=== PATIENT | female | born 1980 | race African-American/Black ===

== ENCOUNTER → 2016-10-23 | Outpatient (CLI) | payer OTHER ==
[~2016-10-23] MED LIST: HYDR-5688 PO; ULT50X PO; XRL15 PO
== END | disposition home or self-care (01) ==
LOC: C.PAPS 14:40
PROVIDERS: ATTEND Obstetrics & Gynecology
DX: Z01.419 Encounter for gynecological examination (general) (routine) without abnormal findings (principal)

== ENCOUNTER 2017-04-21 17:19 | Emergency (ER) | payer OTHER ==
[~2017-04-21] VITALS: Ht 157.5 cm; Wt 64.0 kg
[2017-04-21 17:22] VITALS: TEMP 36.8; Ht 157.5 cm; Wt 64.0 kg
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
[2017-04-21] MEDS ORDERED: HYDR-5688 PO (18:58)
[2017-04-21] MEDS ORDERED: NORCO 5/325MG HOME PACK PO ONE (19:00)
[2017-04-21 19:20] VITALS: BP 111/79; PULSE 87; O2SAT 98
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
[2017-05-23] MEDS ORDERED: XRL15 PO (11:05)
[2017-05-25] MEDS ORDERED: XRL15 PO (11:53)
[2017-05-25] MEDS ORDERED: ULT50X PO (11:53)
== END 2017-04-21 19:50 | disposition home or self-care (01) ==
LOC: C.EDB 17:21 → C.EDD 19:50
DX: S82.041A Displaced comminuted fracture of right patella, initial encounter for closed fracture (principal); V43.62XA Car passenger injured in collision with other type car in traffic accident, initial encounter; Y92.410 Unspecified street and highway as the place of occurrence of the external cause; S80.211A Abrasion, right knee, initial encounter; F17.200 Nicotine dependence, unspecified, uncomplicated

== ENCOUNTER 2017-05-22 23:51 | Inpatient (IN) | payer OTHER ==
[~2017-05-22] VITALS: Ht 154.9 cm; Wt 65.9 kg
[~2017-05-22 23:51] MED LIST changes: -ULT50X PO; -XRL15 PO
[2017-05-23 00:44] LABS: BASO % 0.2 %; BASO ABS # 0.01 K/uL (0-0.2); COMPLETE YES; EOS % 1.1 %; HEMATOCRIT 29.6 % (37-47); IG% 0.2 %; LYMPH ABS # 1.57 K/uL (1.2-3.4); MEAN CELL VOLUME 76.7 fL (80-100); MEAN CORPUSCULAR HEMOGLOBIN 24.6 pg (25-34); MEAN CORPUSCULAR HGB CONC 32.1 g/dl (32-36); MEAN PLATELET VOLUME 10.3 fL (7.4-10.4); NEUT % 63.5 %; PLATELET COUNT 286 K/uL (130-400); RED BLOOD COUNT 3.86 M/uL (4.2-5.4); WHITE BLOOD COUNT 6.53 K/uL (4.8-10.8)
[2017-05-23] MEDS ORDERED: SODIUM CHLORIDE 0.9% 1000ML 1,000 ML IV STA (00:49)
[2017-05-23] MEDS ORDERED: HYDROmorphone INJ 0.5 MG/0.5 ML SYR IV STA (00:49)
[2017-05-23 01:01] LABS: BLOOD UREA NITROGEN 9 mg/dl (7-18); BUN/CREATININE RATIO 10.9 (10-20); CALCIUM 8.5 mg/dl (8.5-10.1); CARBON DIOXIDE 31 mmol/L (21-32); CHLORIDE 104 mmol/L (98-107); CREATININE 0.86 mg/dl (0.60-1.20); GLUCOSE 91 mg/dl (70-99); POTASSIUM 3.7 mmol/L (3.5-5.1); SODIUM 138 mmol/L (136-145)
[2017-05-23] MEDS ORDERED: OPTIRAY 320 IV PRN (01:45)
[2017-05-23] MEDS ORDERED: HYDROmorphone INJ 1 MG/ML SYR IV PRN (02:00)
[2017-05-23] MEDS ORDERED: HEPARIN 25000 UNIT/500 ML D5W ONE (02:43)
[2017-05-23] MEDS ORDERED: HEPARIN SOD 5000 UNIT/0.5 ML CARP ONE (02:43)
[2017-05-23 02:49] LABS: MAGNESIUM 2.2 mg/dl (1.8-2.4)
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
[2017-05-23] MEDS ORDERED: ONDANSETRON INJ 2 MG/ML 2 ML VIAL ONE (03:08)
[2017-05-23] MEDS ORDERED: ACETAMINOPHEN 325 MG TAB PO PRN (03:15)
[2017-05-23] MEDS ORDERED: LORAZEPAM 2 MG/ML 1 ML VIAL IV PRN (03:15)
[2017-05-23] MEDS ORDERED: ONDANSETRON INJ 2 MG/ML 2 ML VIAL IV PRN (03:15)
[2017-05-23] MEDS ORDERED: HYDROmorphone INJ 0.5 MG/0.5 ML SYR IV PRN (03:15)
[2017-05-23] MEDS ORDERED: PROMETHAZINE HCL INJ 12.5 MG in SODIUM CHLORIDE 0.9% 50ML 50 ML IV ONE (04:01)
[2017-05-23] MEDS ORDERED: PROMETHAZINE HCL INJ 12.5 MG in SODIUM CHLORIDE 0.9% 50ML 50 ML IV PRN (04:15)
[2017-05-23] MEDS ORDERED: HEPARIN 25,000 UNIT/500ML D5W 500 ML IV PRN (04:15)
[2017-05-23] MEDS ORDERED: LORAZEPAM INJ 0.5 MG in SYRINGE 0.75 ML IV PRN (04:30)
[2017-05-23 04:48] VITALS: BP 107/72; PULSE 79; TEMP 36.9; O2SAT 99; Ht 154.9 cm; Wt 65.9 kg
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
[2017-05-23 06:28] LABS: HEMATOCRIT 28.4 % (37-47)
--- NOTE | 2017-05-23 06:47 | DIAGNOSTIC IMAGING REPORT ---
CHEST ONE VIEW PORTABLE CLINICAL HISTORY: Left-sided chest pain COMPARISON STUDY: No previous studies for comparison. FINDINGS: The heart is the upper limits of normal in size. There are minor left basilar airspace opacities. There is slight blunting of the left costophrenic angle. The right lung appears clear. There is no failure.[ IMPRESSION: Left basilar airspace opacities. Suspected small left pleural effusion. Electronically signed by: Vik Luna M.D. 05/23/2017 6:46 AM Dictated Date/Time: 05/23/2017 6:45 AM
[2017-05-23 06:50] LABS: PREG INTERNAL NEGATIVE QC NEG CLEAR BACKGROUND; PREG INTERNAL POSITIVE QC POS CONTROL LINE
[2017-05-23 07:09] LABS: FERRITIN 27.5 ng/ml (8.0-388.0)
--- NOTE | 2017-05-23 07:15 | DIAGNOSTIC IMAGING REPORT ---
(CHEST FOR PE) ANGIO WITH CLINICAL HISTORY: 37 years-old Female presenting with lateral left rib pain, hurts to breathe.. TECHNIQUE: Multidetector CT angiography of the chest was performed after administration of intravenous contrast. 3-D volumetric and maximum intensity projection (MIP) images were subsequently reconstructed for review. IV contrast: 93 mL of Optiray 320. A dose lowering technique was used consistent with the principles of ALARA (as low as reasonably achievable). COMPARISON: None. CT DOSE (mGy.cm): The estimated cumulative dose is 183.32 mGy.cm. FINDINGS: Program Analyst topogram: Unremarkable. Pulmonary vasculature: The study is adequate for assessment of the pulmonary vascular tree. Filling defect consistent with pulmonary embolus within the distal right main pulmonary artery extending into the right upper lobe pulmonary artery and interlobar artery. Multiple segmental right pulmonary arteries are involved including the posterior segment of the right upper lobe and extensively in the posterior basal right lower lobe. Pulmonary embolus in the segmental and subsegmental pulmonary arteries of the left lower lobe also noted. Main pulmonary artery not enlarged. No flattening of the interventricular septum. No intracardiac filling defect, however, reflux of contrast into the hepatic veins noted suggesting elevated right heart pressures. Remaining chest: On soft tissue windows, normal thyroid and thoracic inlet. No axillary, supraclavicular, hilar, or mediastinal lymphadenopathy. Normal aorta. Heart top normal in size. No pericardial effusion. Small left pleural effusion. The stomach is distended with ingested material. Remainder of upper abdomen unremarkable. On lung windows, extensive solid consolidation noted dependently in the left lower lobe with overall loss of the left lower lobe. Minimal groundglass opacity also noted in the dependent portions of the right lower lobe. Airways patent. On bone windows, normal osseous structures. IMPRESSION: 1. Bilateral acute pulmonary emboli involving the distal right main pulmonary artery and branches to the right upper and lower lobes. Involvement of segmental and subsegmental pulmonary arteries of the left lower lobe also noted. Reflux of contrast into the hepatic veins suggests elevated right heart pressures. Correlate clinically. 2. Extensive solid consolidation in the left lower lobe with associated small left pleural effusion. This could represent extensive atelectasis, although evolving infarct, pulmonary hemorrhage, or infection cannot be excluded. Follow-up suggested. 3. Minimal opacities at the right lower lobe possibly atelectasis. 4. Preliminary findings were initially reported by Dr. De León at 2:35 AM. The report will be called/faxed according to standard departmental protocol. Electronically signed by: Kurt Vanegas M.D. 05/23/2017 7:14 AM Dictated Date/Time: 05/23/2017 7:06 AM
--- NOTE | 2017-05-23 08:41 | DIAGNOSTIC IMAGING REPORT ---
VENOUS DOPPLER LWR EXT BILA CLINICAL HISTORY: 37 years-old Female presenting with leg pain. TECHNIQUE: Real-time grayscale and color and spectral Doppler ultrasound imaging of the veins of the bilateral lower extremities was performed. Compression and augmentation were also utilized. COMPARISON: None. FINDINGS: Right: Common femoral vein: Patent. Femoral vein: Patent. Greater saphenous vein: Patent. Popliteal vein: Patent. Calf veins: Short segment filling defect within the mid posterior tibial vein suggesting thrombus. The peroneal vein grossly patent Left: Common femoral vein: Patent. Femoral vein: Patent. Greater saphenous vein: Patent. Popliteal vein: Patent. Calf veins: Limited visualization. Other: None. IMPRESSION: Short segment filling defect consistent with deep venous thrombosis in the mid right posterior tibial vein. No evidence of deep venous thrombosis in the left lower extremity. Electronically signed by: Kurt Vanegas M.D. 05/23/2017 8:39 AM Dictated Date/Time: 05/23/2017 8:37 AM
[2017-05-23] MEDS: TRAMADOL HCL 50 MG TAB PO PRN ×2 (09:01→16:39)
[2017-05-23 10:11] LABS: PARTIAL THROMBOPLASTIN RATIO 2.5
[2017-05-23] MEDS ORDERED: XRL15 PO (11:05)
[2017-05-23 11:29] VITALS: BP 112/75; PULSE 84; TEMP 36.7; O2SAT 95
[2017-05-23 12:46] LABS: HEMATOCRIT 29.4 % (37-47)
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
--- NOTE | 2017-05-23 14:34 | ECHOCARDIOGRAM REPORT ---
*NOTICE TO RECEIVING [employer] This information is strictly Confidential and protected under [place] law. [place] law prohibits you from making any further disclosure of this information unless further disclosure is expressly permitted by the written consent of the person to whom it pertains or is authorized by law. A general authorization for the release of medical or other information is not sufficient for this purpose. Hospital accepts no responsibility if the information is made available to any other person, INCLUDING THE PATIENT. Interpretation Summary * Name: VANI DAO Study Date: 05/23/2017 07:07 AM BP: 107/72 mmHg * Patient Location: [facility]\S\N288\S\1 HR: 78 * : 1980 (M/d/yyyy) Gender: Female Height: 61 in * Age: 37 yrs Ethnicity: AA Weight: 137 lb * Ordering Physician: Ke Zeng * Referring Physician: Self, Referred * Performed By: Alexandrea Trevino RCS * * Reason For Study: Chest pain * BSA: 1.6 m2 * -- Conclusions -- * The left ventricle is normal in size. * Left ventricular systolic function is normal. * Ejection Fraction = 55-60%. * The left ventricular wall motion is normal at rest. * The right ventricular systolic function is normal. * The left atrial size is normal. * Right atrial size is normal. * No significant valvualr pathology. Procedure Details * Left Ventricle The left ventricle is normal in size. There is normal left ventricular wall thickness. Ejection Fraction = 55-60%. Left ventricular systolic function is normal. The left ventricular wall motion is normal at rest. * Right Ventricle The right ventricle is normal size. The right ventricular systolic function is normal. * Atria The left atrial size is normal. Right atrial size is normal. The interatrial septum is intact with no evidence for an atrial septal defect. * Mitral Valve The mitral valve anatomy is normal. Significant mitral regurgitation is absent. * Tricuspid Valve The tricuspid valve is not well visualized. Significant tricuspid regurgitation is absent. * Aortic Valve The aortic valve is tricuspid. The leaflet thickness if normal. There is no aortic stenosis, and no significant insufficiency. The aortic valve opens well. There is no significant aortic regurgitation. * Pulmonic Valve The pulmonic valve is not well visualized. There is no significant pulmonary regurgitation. * Pericardium/Pleural There is no pericardial effusion. * * MMode 2D Measurements and Calculations * IVSd 0.92 cm * * LVIDd 4.5 cm * LVIDs 3.2 cm * LVPWd 1.0 cm * * IVS/LVPW 0.92 * FS 29.3 % * EDV(Teich) 91.4 ml * ESV(Teich) 39.9 ml * EF(Teich) 56.4 % * * EDV(cubed) 89.8 ml * ESV(cubed) 31.7 ml * EF(cubed) 64.7 % * * LV mass(C)d 145.0 grams * LV mass(C)dI 90.1 grams/m\S\2 * * SV(Teich) 51.5 ml * SI(Teich) 32.0 ml/m\S\2 * SV(cubed) 58.1 ml * SI(cubed) 36.1 ml/m\S\2 * * Ao root diam 2.2 cm * Ao root area 3.9 cm\S\2 * * LVOT diam 2.0 cm * LVOT area 3.0 cm\S\2 * * LVAd ap4 26.1 cm\S\2 * LVLd ap4 8.4 cm * EDV(MOD-sp4) 71.4 ml * EDV(sp4-el) 69.1 ml * LVAs ap4 16.4 cm\S\2 * LVLs ap4 7.0 cm * ESV(MOD-sp4) 36.8 ml * ESV(sp4-el) 32.6 ml * EF(MOD-sp4) 48.5 % * EF(sp4-el) 52.8 % * * LVAd ap2 18.7 cm\S\2 * LVLd ap2 7.5 cm * EDV(MOD-sp2) 40.7 ml * EDV(sp2-el) 40.0 ml * LVAs ap2 11.3 cm\S\2 * LVLs ap2 6.7 cm * ESV(MOD-sp2) 17.4 ml * ESV(sp2-el) 16.1 ml * EF(MOD-sp2) 57.2 % * EF(sp2-el) 59.8 % * * LVLd %diff -12.39 % * EDV(MOD-bp) 57.3 ml * LVLs %diff -4.05 % * ESV(MOD-bp) 25.4 ml * EF(MOD-bp) 55.8 % * * SV(MOD-sp4) 34.6 ml * SI(MOD-sp4) 21.5 ml/m\S\2 * * SV(MOD-sp2) 23.2 ml * SI(MOD-sp2) 14.5 ml/m\S\2 * * SV(MOD-bp) 32.0 ml * SI(MOD-bp) 19.9 ml/m\S\2 * * SV(sp4-el) 36.5 ml * SI(sp4-el) 22.7 ml/m\S\2 * * SV(sp2-el) 23.9 ml * SI(sp2-el) 14.9 ml/m\S\2 * * * Doppler Measurements and Calculations * MV E max maria guadalupe 83.4 cm/sec * MV A max maria guadalupe 48.0 cm/sec * * MV E/A 1.7 * * MV dec time 0.15 sec * * Ao V2 max 129.0 cm/sec * Ao max PG 6.7 mmHg * Ao max PG (full) 3.7 mmHg * BARON(V,A) 2.0 cm\S\2 * BARON(V,D) 2.0 cm\S\2 * * LV V1 max PG 3.0 mmHg * * LV V1 max 86.3 cm/sec * * TR max maria guadalupe 174.5 cm/sec * * *
[2017-05-23 15:12] VITALS: BP 106/66; PULSE 101; TEMP 37; O2SAT 93
[2017-05-23] MEDS ORDERED: NURSING VERBAL MED ORDER ONE (16:15)
[2017-05-23] MEDS: RIVAROXABAN TAB 15 MG TAB PO SCH (19:02)
[2017-05-23 19:14] LABS: ALKALINE PHOSPHATASE 73 U/L (45-117); ALT/SGPT 22 U/L (12-78); AST/SGOT 22 U/L (15-37)
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
[2017-05-23 20:33] VITALS: BP 119/73; PULSE 68; TEMP 36.7; O2SAT 93
[2017-05-23] MEDS: KETOROLAC TROMETHAMINE 30 MG/ML VIAL IV PRN (22:07)
[2017-05-24 00:08] VITALS: BP 103/66; PULSE 80; TEMP 36.7; O2SAT 95
[2017-05-24 05:01] VITALS: BP 144/69; PULSE 79; TEMP 36.4; O2SAT 97
[2017-05-24 07:30] VITALS: BP 98/64; PULSE 72; TEMP 36.7; O2SAT 95
[2017-05-24 07:44] LABS: BASO % 0.2 %; BASO ABS # 0.01 K/uL (0-0.2); COMPLETE YES; EOS % 1.9 %; HEMATOCRIT 28.4 % (37-47); IG% 0.2 %; LYMPH % 33.5 %; LYMPH ABS # 1.63 K/uL (1.2-3.4); MEAN CORPUSCULAR HEMOGLOBIN 24.7 pg (25-34); MEAN PLATELET VOLUME 10.3 fL (7.4-10.4); MONO % 8.8 %; NEUT % 55.4 %; PLATELET COUNT 275 K/uL (130-400); RED BLOOD COUNT 3.69 M/uL (4.2-5.4); WHITE BLOOD COUNT 4.86 K/uL (4.8-10.8)
[2017-05-24] MEDS: RIVAROXABAN TAB 15 MG TAB PO SCH ×2 (08:14→16:40)
[2017-05-24] MEDS: KETOROLAC TROMETHAMINE 30 MG/ML VIAL IV PRN ×2 (08:14→16:23)
[2017-05-24 08:15] LABS: BUN/CREATININE RATIO 10.6 (10-20); CREATININE 0.85 mg/dl (0.60-1.20); MAGNESIUM 2.2 mg/dl (1.8-2.4); POTASSIUM 3.9 mmol/L (3.5-5.1)
[2017-05-24 11:23] VITALS: BP 106/67; PULSE 88; TEMP 36.8; O2SAT 98
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
[2017-05-24 15:42] VITALS: BP 100/65; PULSE 88; TEMP 36.8; O2SAT 98
[2017-05-24 23:43] VITALS: BP 112/76; PULSE 81; TEMP 36.9; O2SAT 97
[2017-05-25] VITALS (9 sets, daily range): BP systolic 99–115; BP diastolic 62–75; PULSE 77–86; TEMP 36.5–37; O2SAT 94–99
[2017-05-25] MEDS: TRAMADOL HCL 50 MG TAB PO PRN ×3 (06:02→22:56)
[2017-05-25 06:36] LABS: MEAN CELL VOLUME 76.7 fL (80-100); MEAN CORPUSCULAR HEMOGLOBIN 24.3 pg (25-34); MEAN CORPUSCULAR HGB CONC 31.7 g/dl (32-36); PLATELET COUNT 294 K/uL (130-400); RED BLOOD COUNT 3.78 M/uL (4.2-5.4); WHITE BLOOD COUNT 4.85 K/uL (4.8-10.8)
[2017-05-25] MEDS: RIVAROXABAN TAB 15 MG TAB PO SCH ×2 (08:13→17:12)
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
[2017-05-25] MEDS ORDERED: ULT50X PO (11:53)
[2017-05-25] MEDS ORDERED: XRL15 PO (11:53)
--- NOTE | 2017-05-25 11:57 | Discharge Instructions ---
Discharge Instructions Date of Service May 25, 2017. Admission Reason for Admission: Pulmonary Embolism Discharge Discharge Diagnosis / Problem: Acute Bilateral PE Discharge Goals Goal(s): Decrease discomfort, Improve function, Diagnostic testing, Therapeutic intervention Activity Recommendations Activity Limitations: resume your previous activity . Instructions / Follow-Up Instructions / Follow-Up Please follow-up with Dr. Pete on May 28 at 10:45AM * You will be on Xarelto 15mg twice a day for the next 20 days * Then switch Xarelto to 20mg once a day for three months * For pain, take Tramadol 50mg q6 as needed; only take this as needed * You should follow-up with orthopedic surgery regarding the R knee fracture in 2 weeks as scheduled * Primary care doctor can offer a V/Q scan in three months to make sure the clot is resolved Current Hospital Diet Patient's current hospital diet: Regular Diet Discharge Diet Recommended Diet: Regular Diet Pending Studies Studies pending at discharge: no Medical Emergencies . Who to Call and When: Medical Emergencies: If at any time you feel your situation is an emergency, please call 911 immediately. . Non-Emergent Contact Non-Emergency issues call your: Primary Care Provider . . "Provider Documentation" section prepared by Dianne Alex. . VTE Core Measure Inpt VTE Proph given/why not?: Other Anticoagulation (Xarelto) [place] Drug Monitoring Program Search Results: patient reviewed within database, no issues identified
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
[2017-05-26 07:34] VITALS: BP 110/70; PULSE 75; TEMP 36.8; O2SAT 98
[2017-05-26] MEDS: RIVAROXABAN TAB 15 MG TAB PO SCH (08:56)
[2017-05-26 10:00] VITALS: O2SAT 98
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
[2017-05-26 13:18] VITALS: BP 110/70; PULSE 75; TEMP 36.8; O2SAT 98
== END 2017-05-26 14:47 | disposition home or self-care (01) | DRG 299 ==
LOC: C.EDB 23:52 → C.MED 05-23 02:39 → ENRESERV 05-23 02:50 → C.4E 05-25 22:35
PROVIDERS: ADMIT Internal Medicine; ATTEND Family Medicine
DX: I82.4Z1 Acute embolism and thrombosis of unspecified deep veins of right distal lower extremity (principal); I26.99 Other pulmonary embolism without acute cor pulmonale; S82.001D Unspecified fracture of right patella, subsequent encounter for closed fracture with routine healing; D64.9 Anemia, unspecified; Z86.11 Personal history of tuberculosis; N92.0 Excessive and frequent menstruation with regular cycle; V89.2XXD Person injured in unspecified motor-vehicle accident, traffic, subsequent encounter

== ENCOUNTER → 2017-06-11 | Outpatient (CLI) | payer OTHER ==
[~2017-06-11] MED LIST changes: -HYDR-5688 PO; +ULT50X PO; +XRL15 PO
[2017-06-11 14:52] LABS: HEMATOCRIT 28.1 % (37-47); MEAN CELL VOLUME 75.3 fL (80-100); MEAN CORPUSCULAR HEMOGLOBIN 23.9 pg (25-34); MEAN CORPUSCULAR HGB CONC 31.7 g/dl (32-36); MEAN PLATELET VOLUME 10.7 fL (7.4-10.4); PLATELET COUNT 319 K/uL (130-400); RED BLOOD COUNT 3.73 M/uL (4.2-5.4); WHITE BLOOD COUNT 4.36 K/uL (4.8-10.8)
== END | disposition home or self-care (01) ==
LOC: C.LAB1850 12:34
PROVIDERS: ATTEND Physician Assistant
DX: N92.0 Excessive and frequent menstruation with regular cycle (principal)

== ENCOUNTER → 2017-06-18 | Outpatient (CLI) | payer OTHER ==
[2017-06-18 14:54] LABS: HEMATOCRIT 24.6 % (37-47); MEAN CELL VOLUME 76.9 fL (80-100); MEAN CORPUSCULAR HEMOGLOBIN 24.7 pg (25-34); MEAN CORPUSCULAR HGB CONC 32.1 g/dl (32-36); MEAN PLATELET VOLUME 10.8 fL (7.4-10.4); PLATELET COUNT 280 K/uL (130-400); WHITE BLOOD COUNT 6.22 K/uL (4.8-10.8)
== END | disposition home or self-care (01) ==
LOC: C.LAB1850 12:53
PROVIDERS: ATTEND Physician Assistant
DX: N93.9 Abnormal uterine and vaginal bleeding, unspecified (principal)

== ENCOUNTER → 2017-06-21 | Outpatient (CLI) | payer OTHER ==
[~2017-06-21] MED LIST changes: +APIX1TAB3 PO; +DPPRI400 IM
[2017-06-21 10:45] LABS: HEMATOCRIT 24.9 % (37-47); MEAN CELL VOLUME 76.6 fL (80-100); MEAN CORPUSCULAR HGB CONC 31.3 g/dl (32-36); MEAN PLATELET VOLUME 10.6 fL (7.4-10.4); PLATELET COUNT 275 K/uL (130-400); RED BLOOD COUNT 3.25 M/uL (4.2-5.4); WHITE BLOOD COUNT 5.11 K/uL (4.8-10.8)
== END | disposition home or self-care (01) ==
LOC: C.LAB1850 09:27
PROVIDERS: ATTEND Physician Assistant
DX: D64.9 Anemia, unspecified (principal)

== ENCOUNTER 2017-06-22 18:26 | Emergency (ER) | payer OTHER ==
[~2017-06-22] VITALS: Ht 157.5 cm; Wt 62.4 kg
[~2017-06-22 18:26] MED LIST changes: -APIX1TAB3 PO; -DPPRI400 IM
[2017-06-22 18:37] VITALS: TEMP 36.6; Ht 157.5 cm; Wt 62.4 kg
[2017-06-22 19:24] LABS: BASO % 0.2 %; BASO ABS # 0.01 K/uL (0-0.2); EOS % 1.7 %; HEMATOCRIT 27.3 % (37-47); IG% 0.3 %; LYMPH % 38.2 %; LYMPH ABS # 2.49 K/uL (1.2-3.4); MEAN CELL VOLUME 76.9 fL (80-100); MEAN CORPUSCULAR HEMOGLOBIN 23.9 pg (25-34); MEAN CORPUSCULAR HGB CONC 31.1 g/dl (32-36); MEAN PLATELET VOLUME 9.8 fL (7.4-10.4); MONO % 6.6 %; PLATELET COUNT 298 K/uL (130-400); RED BLOOD COUNT 3.55 M/uL (4.2-5.4); WHITE BLOOD COUNT 6.51 K/uL (4.8-10.8)
[2017-06-22 19:33] LABS: PROTHROMBIN TIME (PATIENT) 11.2 SECONDS (9.0-12.0)
[2017-06-22 19:43] LABS: BUN/CREATININE RATIO 5.9 (10-20); CALCIUM 8.8 mg/dl (8.5-10.1); CREATININE 0.93 mg/dl (0.60-1.20); POTASSIUM 3.6 mmol/L (3.5-5.1)
[2017-06-22 20:31] LABS: ANISOCYTOSIS PRESENT; COMPLETE YES; HYPOCHROMIA PRESENT; POLYCHROMASIA 1+
--- NOTE | 2017-06-22 20:41 | DIAGNOSTIC IMAGING REPORT ---
ULTRASOUND RIGHT LOWER EXTREMITY VENOUS CLINICAL HISTORY: Right leg pain. Known calf DVT. COMPARISON STUDY: Bilateral lower extremity venous ultrasound dated 05/23/2017. TECHNIQUE: Real-time, grayscale, and color Doppler sonography of the deep veins of the right lower extremity was performed from the inguinal crease to the calf. Compression and augmentation were utilized. FINDINGS: Occlusive deep venous thrombosis is identified within the right posterior tibial vein. This is similar to the 05/23/2017 examination. The remaining calf vessels are patent. The common femoral, superficial femoral, and popliteal veins are patent and normally compressible. The greater saphenous vein and the profunda femoris vein at the junction with the common femoral vein are clear. IMPRESSION: 1. Occlusive deep venous thrombosis is again seen in the right posterior tibial vein. This is similar to 05/23/2017. 2. No above knee deep venous thrombosis is identified. Electronically signed by: Sergo Arevalo M.D. 06/22/2017 8:40 PM Dictated Date/Time: 06/22/2017 8:39 PM
[2017-06-22] MEDS ORDERED: APIX1TAB3 PO (20:59)
[2017-06-22] MEDS ORDERED: DPPRI400 IM (20:59)
[2017-06-22 21:43] VITALS: BP 107/76; PULSE 80; O2SAT 100
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
== END 2017-06-22 22:09 | disposition home or self-care (01) ==
LOC: C.EDB 18:28 → C.EDC 22:09
DX: M79.604 Pain in right leg (principal); I82.409 Acute embolism and thrombosis of unspecified deep veins of unspecified lower extremity

== ENCOUNTER → 2017-06-25 | Outpatient (CLI) | payer OTHER ==
[~2017-06-25] MED LIST changes: +APIX1TAB3 PO; +DPPRI400 IM; -ULT50X PO; -XRL15 PO
[2017-06-25 16:09] LABS: HEMATOCRIT 27.3 % (37-47); MEAN CELL VOLUME 77.6 fL (80-100); MEAN CORPUSCULAR HEMOGLOBIN 24.4 pg (25-34); MEAN CORPUSCULAR HGB CONC 31.5 g/dl (32-36); MEAN PLATELET VOLUME 10.2 fL (7.4-10.4); PLATELET COUNT 289 K/uL (130-400); RED BLOOD COUNT 3.52 M/uL (4.2-5.4); WHITE BLOOD COUNT 5.28 K/uL (4.8-10.8)
[2017-06-25 16:39] LABS: TOTAL IRON BINDING CAPACITY 384 mcg/dl (250-450)
== END | disposition home or self-care (01) ==
LOC: C.LAB1850 14:45
PROVIDERS: ATTEND Physician Assistant
DX: N93.9 Abnormal uterine and vaginal bleeding, unspecified (principal); I82.409 Acute embolism and thrombosis of unspecified deep veins of unspecified lower extremity; D64.9 Anemia, unspecified

== ENCOUNTER → 2017-07-18 | Outpatient (CLI) | payer OTHER ==
[2017-07-18 12:22] LABS: HEMATOCRIT 29.8 % (37-47); MEAN CELL VOLUME 77.6 fL (80-100); MEAN CORPUSCULAR HEMOGLOBIN 23.4 pg (25-34); MEAN CORPUSCULAR HGB CONC 30.2 g/dl (32-36); MEAN PLATELET VOLUME 11.1 fL (7.4-10.4); PLATELET COUNT 270 K/uL (130-400); RED BLOOD COUNT 3.84 M/uL (4.2-5.4); WHITE BLOOD COUNT 4.27 K/uL (4.8-10.8)
== END | disposition home or self-care (01) ==
LOC: C.LAB1850 10:06
PROVIDERS: ATTEND Obstetrics & Gynecology
DX: D64.9 Anemia, unspecified (principal)

== ENCOUNTER → 2017-07-20 | Outpatient (CLI) | payer OTHER ==
[~2017-07-20] MED LIST changes: +OPTIRAY 320 IV PRN
--- NOTE | 2017-07-20 15:53 | DIAGNOSTIC IMAGING REPORT ---
(CHEST FOR PE) ANGIO WITH CLINICAL HISTORY: 37 years-old Female presenting with history of PE. TECHNIQUE: Multidetector CT angiography of the chest was performed after administration of intravenous contrast. 3-D volumetric and/or maximum intensity projection (MIP) images were subsequently reconstructed for review. IV contrast: 93 mL of Optiray 320. A dose lowering technique was used consistent with the principles of ALARA (as low as reasonably achievable). COMPARISON: 05/23/2017. CT DOSE (mGy.cm): The estimated cumulative dose is 293.35 mGycm. FINDINGS: Senior Clinical Consultant topogram: Unremarkable. Pulmonary vasculature: The study is adequate for assessment of the pulmonary vascular tree. Interval resolution of extensive pulmonary embolus clot burden in the right pulmonary vascular tree. Similarly, prior clot burden in the left lower lobe has resolved. No new filling defects to suggest acute pulmonary emboli. No eccentric filling defects to suggest chronic emboli. Main pulmonary artery is not enlarged. No flattening of the interventricular septum. No intracardiac intracardiac filling defect. No reflux of contrast into the hepatic veins, where previously reflux of contrast was noted. Remaining chest: On soft tissue windows, normal thyroid and thoracic inlet. No axillary, supraclavicular, hilar, or mediastinal lymphadenopathy. Normal aorta. Mild multichamber enlargement of the heart, unchanged. No pericardial or pleural effusion. Upper abdomen normal. On lung windows, peripheral wedgelike opacity in the posterior basal left lower lobe. This focal consolidation is much more limited than prior more diffuse basilar opacities in the left lower lobe. No other focal infiltrate. Airways patent. On bone windows, normal osseous structures. IMPRESSION: 1. Interval resolution of prior pulmonary embolus clot burden. No evidence of acute or chronic pulmonary emboli on the current exam. 2. Significant interval decrease in previous extensive left lower lobe opacities, which have now evolved into a focal wedgelike peripheral consolidation. This likely represents a small infarct. Electronically signed by: Kurt Vanegas M.D. 07/20/2017 3:52 PM Dictated Date/Time: 07/20/2017 3:42 PM
== END | disposition home or self-care (01) ==
LOC: C.CTS 15:11
PROVIDERS: ATTEND Physician Assistant
DX: R07.89 Other chest pain (principal)

== ENCOUNTER → 2017-12-07 | Outpatient (CLI) | payer OTHER ==
[~2017-12-07] MED LIST changes: -OPTIRAY 320 IV PRN
--- NOTE | 2017-12-07 08:54 | DIAGNOSTIC IMAGING REPORT ---
ULTRASOUND R VENOUS DOPP LOWER EXT UNILAT CLINICAL HISTORY: I82.409 DVT (deep venous thrombosis)Repeat scan of Right lower l COMPARISON STUDY: 06/22/2017 FINDINGS: Real-time and color flow Doppler imaging were performed. Flow was seen within the femoral, popliteal and calf veins with no intraluminal thrombus demonstrated. The saphenous vein is patent. IMPRESSION: Resolution of the previous identified DVT. No evidence of right lower extremity DVT. Electronically signed by: Vik Luna M.D. 12/07/2017 8:53 AM Dictated Date/Time: 12/07/2017 8:52 AM
== END | disposition home or self-care (01) ==
LOC: C.ULTRBC 12-05 08:30
PROVIDERS: ATTEND Physician Assistant
DX: I82.409 Acute embolism and thrombosis of unspecified deep veins of unspecified lower extremity (principal)

== ENCOUNTER → 2017-12-10 | Day surgery (SDC) | payer OTHER ==
[2017-11-09 07:36] VITALS: Ht 157.5 cm; Wt 65.9 kg
--- NOTE | 2017-12-07 08:16 | HISTORY & PHYSICAL EXAMINATION ---
DATE OF ADMISSION: 12/10/2017 CHIEF COMPLAINT: Endometrial mass. HISTORY OF PRESENT ILLNESS: The patient is a 37-year-old 5, para 4-0-1-4, who is status post tubal. The patient developed heavy vaginal bleeding after being put on Eliquis when she developed a DVT and subsequent PE following a trauma to her knee. Ultrasound done in July 2017 showed she had evidence of 2 endometrial masses. Repeat ultrasound October 2017, again confirmed the presence of at least one endometrial mass. Meanwhile, the patient was treated with Depo-Provera due to the heavy bleeding and has not been menstruating. Her last Pap smear was October 2017 and this was negative. ALLERGIES: THE PATIENT REPORTS AN ALLERGY TO MACROBID. MEDICATIONS: Depo-Provera 150 mg injection every 12 weeks. ILLNESSES: History of DVT and pulmonary embolus following fracture of her knee. The patient was taken off Eliquis a few months ago. She has a history of depression. Also, a history of anemia. She has had migraine headaches. PAST SURGICAL HISTORY: She is status post as well as tubal. She has had 3 sections and 1 vaginal delivery along with a miscarriage. FAMILY HISTORY: Her mother has a history of heart disease and hypertension along with elevated cholesterol. There is also a history of anemia in the family. SOCIAL HISTORY: The patient is single. She does not smoke cigarettes or drink alcohol. PHYSICAL EXAMINATION: GENERAL: Height 5 foot 4 inches, weight 154 pounds. VITAL SIGNS: Blood pressure 118/72. HEENT: Grossly within normal limits. NECK: Supple without masses. CHEST: Her lungs are clear without wheezing. HEART: Regular rate and rhythm. No murmurs, gallops or rubs. ABDOMEN: Soft and nontender. PELVIC: External genitalia normal. Vagina pink and stimulated. Cervix pink and closed with no lesions visible. Uterus within normal limit, size, nontender. Adnexa nontender with no masses palpable. EXTREMITIES: No cyanosis, clubbing or edema. IMPRESSION: A 37-year-old black female 5, para 4-0-1-4, with endometrial masses. PLAN: The patient is for hysteroscopy, dilation of the cervix and curettage with possible removal of polyp/lesion. The patient is aware of the risks of bleeding, infection, perforation of the uterus, possible damage to internal organs, possible need for further treatment. [facility]
[~2017-12-10] VITALS: Ht 157.5 cm; Wt 65.9 kg
[~2017-12-10] MED LIST changes: +ATROPINE SULFATE 0.1 MG/ML 5ML SYR IV PRN; +DEXAMETHASONE SOD INJ 4 MG/ML VIAL ONE; +EpHEDrine SULFATE INJ 50 MG/ML AMP IV PRN; +FENTANYL CITRATE INJ 50 MCG/1 ML 2 ML VIAL ONE; +IBUPROFEN 600 MG TAB PO PRN; +KETOROLAC TROMETHAMINE 30 MG/ML VIAL ONE; +LACTATED RINGER'S 1000ML 1,000 ML IV SCH; +LIDOCAINE HCL 2% 2 ML VIAL (20MG/ML) ONE; +MIDAZOLAM HCL 1 MG/ML 2ML VIAL ONE; +ONDANSETRON INJ 2 MG/ML 2 ML VIAL ONE; +PROPOFOL IV EMULSION 10 MG/ML 20 ML VIAL IV ONE; +SODIUM CHLORIDE 0.9% 1000ML 1,000 ML IV SCH
--- NOTE | 2017-12-10 07:39 | History & Physical Bridge - SC ---
H&P Re-Evaluation Bridge Note: I have examined the patient, reviewed the History & Physical and in the interval since the performance of the History & Physical I have noted the following changes of clinical significance: No changes noted
--- NOTE | 2017-12-10 08:14 | [facility] Post Operative Brief Note ---
Immediate Operative Summary Operative Date Dec 10, 2017. Pre-Operative Diagnosis Endometrial Mass Post-Operative Diagnosis Same Procedure(s) Performed Dilatation And Curettage, Hysteroscopy, polypectomy Surgeon Dr. Wu Curator [employer] Surgeon(s) None Estimated Blood Loss 5 ml Findings Consistent with Post-Op Diagnosis Specimens A.) Endocervical Curettings B.) Endometrial Curettings C.) Endometrial Polyp Anesthesia Type General Complication(s) none Disposition Disposition: Recovery Room / PACU
--- NOTE | 2017-12-10 08:23 | Discharge Instructions-SurgCtr ---
Discharge Instructions Date of Service Dec 10, 2017. Visit Reason for Visit: Endometrial Mass Discharge Discharge Diagnosis / Problem: S/P Hysteroscopy, D&C and polypectomy Discharge Goals Goal(s): Diagnostic testing, Therapeutic intervention Activity Recommendations Activity Limitations: per Instructions/Follow-up section Anesthesia . Post Anesthesia Instructions: If you have had General Anesthesia or IV Sedation: * Do not drive today. * Resume driving when surgeon permits. * Do not make important decisions or sign legal documents today. * Call surgeon for: 1. Temperature elevations greater than 101 degrees F. 2. Uncontrollable pain. 3. Excessive bleeding. 4. Persistent nausea and vomiting. 5. Medication intolerance (nausea, vomiting or rash). * For nausea and vomiting use only clear liquids such as: tea, soda, bouillon until nausea subsides, then gradually increase diet as tolerated. * If you have any concerns or questions, call your surgeon's office. If physician is unavailable and it is an emergency, call 911 or go to the nearest emergency room. . Instructions / Follow-Up Instructions / Follow-Up ACTIVITY RECOMMENDATIONS: * Avoid tampons, douching, hot tubs, pools, and intercourse until bleeding has stopped. * May shower as usual. * No strenuous activity for 24-48 hours. After 24-48 hours, you may do anything you feel like doing (driving and sports are okay). SPECIAL CARE INSTRUCTIONS: Special Diet: * Mild nausea may occur in the immediate post-operative period. * Take clear liquids such as tea, cola or bouillon until all nausea has subsided; you may then resume your normal diet. Special Care: * Light bleeding and vaginal spotting can last from a few days to 3-4 weeks. Call your doctor if bleeding becomes heavier than the heaviest part of your period. * Check your temperature twice a day for one week. If it goes above 100.4 degrees Fahrenheit (38.0 Celsius), notify your doctor. Call if you develop a foul smelling vaginal discharge or persistent cramping. * Call your doctor's office for an appointment for 2-4 weeks after your surgery. - FOLLOW-UP VISIT: Call your doctor's office for an appointment for 2-4 weeks after your surgery if you do not already have an appointment scheduled. [phone] Diet Recommendations Home Diet: resume previous diet Procedures Procedures Performed: Dilatation And Curettage, Hysteroscopy, polypectomy Pending Studies Studies pending at discharge: yes List of pending studies: Pathology report on tissue removed at D&C. We will call you with that report. This can take up to a week. Medical Emergencies . Who to Call and When: Medical Emergencies: If at any time you feel your situation is an emergency, please call 911 immediately. . Non-Emergent Contact Non-Emergency issues call your: Dairy Bar Manager Call Non-Emergent contact if: temperature is above 100.5, your pain is worsening . . "Provider Documentation" section prepared by Rosalia Wu. .
[2017-12-10 09:02] VITALS: TEMP 36.4
--- NOTE | 2017-12-10 09:19 | Anesthesia Progress Nt - [facility] ---
Anesthesia Post Op Note Date & Time Dec 10, 2017 at 09:19 Vital Signs Pain Intensity: 0 Vital Signs Past 12 Hours Date Time Temp Pulse Resp B/P (MAP) Pulse Ox O2 Delivery O2 Flow Rate FiO2 12/10/17 09:02 36.4 79 18 121/74 (90) 100 Room Air 12/10/17 08:56 82 18 100 12/10/17 08:56 81 18 12/10/17 08:55 119/77 12/10/17 08:52 36.4 81 16 110/71 100 Room Air 12/10/17 08:51 86 14 12/10/17 08:51 85 14 99 12/10/17 08:50 110/71 12/10/17 08:46 80 16 12/10/17 08:46 80 16 99 12/10/17 08:45 110/74 12/10/17 08:41 80 18 99 12/10/17 08:41 80 18 12/10/17 08:40 112/71 12/10/17 08:36 84 12 12/10/17 08:36 87 12 100 12/10/17 08:35 107/67 12/10/17 08:33 69 11 100 12/10/17 08:33 70 11 12/10/17 08:30 105/68 12/10/17 08:28 72 12 100 12/10/17 08:28 72 12 12/10/17 08:27 71 12 100 12/10/17 08:27 72 12 12/10/17 08:25 99/65 12/10/17 08:22 74 12 12/10/17 08:22 75 12 100 12/10/17 08:20 99/61 12/10/17 08:17 77 12/10/17 08:17 77 100/67 99 12/10/17 08:17 36.3 77 16 100/67 99 Diffusion Mask 6 12/10/17 06:45 36.7 84 16 118/86 (97) 97 Room Air Notes Mental Status: alert / awake / arousable, participated in evaluation Pt Amnestic to Procedure: Yes Nausea / Vomiting: adequately controlled Pain: adequately controlled Airway Patency, RR, SpO2: stable & adequate BP & HR: stable & adequate Hydration State: stable & adequate Anesthetic Complications: no major complications apparent
[2017-12-10 09:27] VITALS: BP 114/70; PULSE 80; O2SAT 100
--- NOTE | 2017-12-11 14:29 | OPERATIVE REPORT ---
DATE OF OPERATION: 12/10/2017 PREOPERATIVE DIAGNOSIS: Endometrial mass. POSTOPERATIVE DIAGNOSIS: Same. PROCEDURE PERFORMED: Hysteroscopy, dilation and curettage and polypectomy. SURGEON: Dr. Rosalia Wu. ANESTHESIA: General. LAY BROTHER: Dr. Meneses. DESCRIPTION OF PROCEDURE: The patient was taken to the operating room where general anesthesia was administered. After an adequate level was obtained, she was placed in dorsal lithotomy position. Vulva, vagina, and cervix were prepped with Betadine solution. The patient was draped. Bladder was drained with a straight catheter. Bimanual exam revealed uterus to be normal size and no adnexal masses were present. A weighted speculum was placed in the vagina. The anterior lip of the cervix was grasped with an Allis clamp. Endocervical curettings were then obtained. These were minimal. Uterus sounded to 8.5 cm. The cervix was then dilated enough to admit the hysteroscope. Hysteroscope was introduced and the endometrial cavity visualized. The bulk of the endometrium appeared pale. There was a pink polypoid mass in the right cornua. Hysteroscope was removed. This was done after photos were taken. Polyp forceps were then introduced and the entire polyp removed with one pass. Small sharp toothed curette was then introduced into the endometrial cavity. The cavity was curetted for some small bits of additional tissue. Tissue was minimal to moderate in amount. After the curettage, hysteroscope was used to visualize the cavity once more. It was confirmed that the entire polypoid mass had been removed. There were no additional lesions. The endocervical curettings, endometrial curettings and polyp were sent each separately to pathology. At this point, the procedure was ended. Estimated blood loss was less than 10 mL. The patient tolerated the procedure well and was taken to the recovery room in good condition. I attest to the content of the Intraoperative Record and any orders documented therein. Any exceptions are noted below. MTDD
== END | disposition home or self-care (01) ==
LOC: X.SURG 06:33
PROVIDERS: ATTEND Obstetrics & Gynecology
DX: N84.0 Polyp of corpus uteri (principal); F32.9 Major depressive disorder, single episode, unspecified; Z86.718 Personal history of other venous thrombosis and embolism; Z86.711 Personal history of pulmonary embolism; Z82.49 Family history of ischemic heart disease and other diseases of the circulatory system